=== PATIENT | female | born 1950 | race Caucasian/White ===

== ENCOUNTER 2017-08-05 12:44 | Outpatient (CLI) | payer MEDICARE | END 2017-08-05 12:45 | disposition home or self-care (01) | LOC: BICMAMMO 12:44 | PROVIDERS: ATTEND Internal Medicine Rheumatology | DX: Z13.820 Encounter for screening for osteoporosis (principal); M19.90 Unspecified osteoarthritis, unspecified site; M06.9 Rheumatoid arthritis, unspecified; M47.894 Other spondylosis, thoracic region | CPT/HCPCS: 71046; 72070; 77080 ==

== ENCOUNTER 2017-09-28 09:16 | Outpatient (CLI) | payer MEDICARE | END 2017-09-28 09:17 | disposition home or self-care (01) | LOC: BICMRI 09:16 | PROVIDERS: ATTEND Nurse Practitioner Family | DX: M47.24 Other spondylosis with radiculopathy, thoracic region (principal); M47.892 Other spondylosis, cervical region; M25.78 Osteophyte, vertebrae; G95.19 Other vascular myelopathies | CPT/HCPCS: 72141; 72146 ==

== ENCOUNTER 2018-01-28 17:19 | Emergency (ER) | payer MEDICARE ==
--- NOTE | 2018-01-28 18:17 | RAD ---
RIGHT WRIST THREE VIEW 01/28/18 HISTORY: Fall. Injury. COMPARISON: None. FINDINGS: Advanced degenerative disease radiocarpal joint. Advanced degenerative disease distal radial ulnar miguel a int. Positive ulnar variance. Severe degenerative disease thumb carpometacarpal joint. Evidence of ol d scapholunate ligament injury. IMPRESSION: Advanced degenerative changes. No acute displaced fracture is appreciated. POS: [facility]
[2018-01-28] MEDS ORDERED: HYDROcodone/Acetaminophen 5/325 mg Tablet ONE (19:06)
[2018-01-28] MEDS ORDERED: Adacel (T-DAP) 0.5 ML VIAL ONE (19:06)
== END 2018-01-28 19:18 | disposition home or self-care (01) ==
LOC: ERS 17:19
DX: S63.501A Unspecified sprain of right wrist, initial encounter (principal); F32.9 Major depressive disorder, single episode, unspecified; I10 Essential (primary) hypertension; Z23 Encounter for immunization; W01.0XXA Fall on same level from slipping, tripping and stumbling without subsequent striking against object, initial encounter
CPT/HCPCS: 90715

== ENCOUNTER 2018-08-01 13:51 | Outpatient (CLI) | payer MEDICARE ==
--- NOTE | 2018-08-01 15:35 | RAD ---
SEVEN VIEWS CERVICAL SPINE INCLUDING AP AND LATERAL AND FLEXION AND EXTENSION AND RIGHT AND LEFT OBLI QUE AND OPEN MOUTH ODONTOID VIEWS CERVICAL SPINE: HISTORY: Spondylosis cervical region. FINDINGS: Images demonstrate extensive anterior osteophytes with bridging osteophytes seen in the C4, C5, and c 6 vertebral levels. Large anterior bridging osteophytes are seen at the C5-6 level. Mild disk space height loss is seen at C5-6 and C6-7. There is 2 mm of anterolisthesis of C6 on C7. The neural foramen are patent. IMPRESSION: Mid and lower cervical changes of spondylosis. POS: [facility]
== END 2018-08-01 13:52 | disposition home or self-care (01) ==
LOC: BICRAD 13:51
PROVIDERS: ATTEND Internal Medicine Rheumatology
DX: M43.02 Spondylolysis, cervical region (principal); M47.812 Spondylosis without myelopathy or radiculopathy, cervical region
CPT/HCPCS: 72052

== ENCOUNTER 2018-10-23 12:38 | Outpatient (CLI) | payer MEDICARE ==
--- NOTE | 2018-10-23 13:41 | MRI ---
MRI Cervical Spine WO Con History: M 47.812 cervical spondylosis without myelopathy Comparison: Radiographs August 01, 2018 Findings: The cerebral tonsils terminate at the level of the foramen magnum. The cord signal is gustavo l. Prevertebral soft tissues are unremarkable. Paraspinal musculature is normal. No cervical adenopathy. Levels are as follows: C2/C3: Disc desiccation. Moderate uncinate process hypertrophy, greatest on the right. Moderate to se ruth bilateral facet arthrosis. Moderate to severe right and moderate left neural foraminal narrowing. C3/C4: Disc desiccation. Moderate degenerative disc space height loss. Moderate uncinate process hype rtrophy. Severe right and moderate left facet arthrosis. Moderate to severe right and left neural foraminal narrowing. C4/C5: Disc desiccation. Severe right and moderate left facet arthrosis. 2 mm anterolisthesis. Modera te uncinate process hypertrophy. Moderate to severe right and moderate left neural foraminal narrowing. C5/C6: Disc desiccation. High-grade right uncinate process hypertrophy. Severe right and moderate lef t facet arthropathy. Minimal effacement of the ventral CSF space although the canal still measures over 1 cm. Moderate right and mild left neural foraminal narrowing. C6/C7: 2 mm anterolisthesis. Severe facet arthropathy. There is posterior subluxation of scar and dis c material from anterolisthesis. Spinal canal not narrowed. Moderate right and mild left neural foraminal narrowing. C7/T1: Mild disc desiccation. No neural foraminal or spinal canal narrowing. There is a central posterior disc protrusion incompletely evaluated on this examination at the level of T2/T3 with effacement of the ventral CSF space and cord abutment. Impression: Advanced multilevel spondylosis as described.
== END 2018-10-23 12:39 | disposition home or self-care (01) ==
LOC: TBSIIMAG 12:38
PROVIDERS: ATTEND Neurological Surgery
DX: M47.812 Spondylosis without myelopathy or radiculopathy, cervical region (principal)
CPT/HCPCS: 72141

== ENCOUNTER 2019-03-08 09:25 | Outpatient (CLI) | payer MEDICARE ==
[~2019-03-08 09:25] MED LIST: Gadobenate Dimeglumine 529 MG/1 ML (20ML VIAL) ONE
--- NOTE | 2019-03-08 11:29 | MRI ---
MRI BRAIN WITH AND WITHOUT IV CONTRAST: HISTORY: TIA. Transient global amnesia COMPARISON: None CORRELATION: None FINDINGS: No restricted diffusion is seen. No evidence of infarct, hemorrhage, mass, midline shift or abnormal extra-axial fluid collections is noted. No abnormal postcontrast enhancement is seen. The ventricular size is appropriate and the basilar cisterns are patent. There are multiple foci of T2 prolongation in the periventricular white matter, consistent with chron ic small vessel ischemic disease. There is mucosal disease in the paranasal sinuses. IMPRESSION: No evidence of acute intracranial process or mass.
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
== END 2019-03-08 09:26 | disposition home or self-care (01) ==
LOC: SCSMRI 09:25
PROVIDERS: ATTEND Psychiatry & Neurology Neurology
DX: G45.4 Transient global amnesia (principal)
CPT/HCPCS: 70553; 82565; 93880; A9577

== ENCOUNTER 2019-07-10 09:27 | Outpatient (CLI) | payer MEDICARE ==
--- NOTE | 2019-07-10 10:46 | MMO ---
Bilateral MAMMO Bilat Diag [facility]BRIANNE. CLINICAL HISTORY: Patient is 69 years old and is seen for diagnostic exam. VIEWS: The views performed were: . FILMS COMPARED: The present examination has been compared to prior imaging studies performed at [facility] on 07/10/2019, and at [facility] on 11/20/2012. This study has been interpreted with the assistance of computer-aided detection. MAMMOGRAM FINDINGS: There are scattered fibroglandular densities. Finding 1: There are stable benign appearing calcifications seen in both breasts. Finding 2: Limited ultrasound of the right breast was performed in region of patient's focal area of pain. No cystic or solid lesion is seen. There are no suspicious masses, suspicious calcifications, or new areas of architectural distortion. IMPRESSION: FINDING 1: STABLE CALCIFICATIONS IN BOTH BREASTS ARE BENIGN. FINDING 2: FINDING IN THE RIGHT BREAST IS BENIGN. PATIENT'S FOCAL AREA OF PAIN SHOULD BE FURTHER MANAGED CLINICALLY. A ROUTINE FOLLOW-UP MAMMOGRAM IN 1 YEAR IS RECOMMENDED. THE RESULTS OF THIS EXAM WERE SENT TO THE PATIENT. ACR BI-RADS Category 2 - Benign finding MAMMOGRAPHY NOTE: 1. A negative mammogram report should not delay a biopsy if a dominant of clinically suspicious mass is present. 2. Approximately 10% to 15% of breast cancers are not detected by mammography. 3. Adenosis and dense breasts may obscure an underlying neoplasm. Reported by: RAINA DYKES MD Electonically Signed: [id number]
--- NOTE | 2019-07-10 11:40 | ULT ---
LIIMTED ULTRASOUND RIGHT BREAST: HISTORY: Focal area of pain right breast. FINDINGS: Limited sonographic evaluation of the right breast was performed at the 1:00 to 2:00 position at the site of patient's focal area of pain. No mass or cystic lesion is seen in this region. IMPRESSION: 1. BIRADS category 2, benign findings. Routine annual mammographic screening is recommended. 2. The patient's focal area of pain should be further managed clinically. POS: [facility]
== END 2019-07-10 09:28 | disposition home or self-care (01) ==
LOC: BICMAMMO 09:27
PROVIDERS: ATTEND Family Medicine
DX: N64.4 Mastodynia (principal); R92.1 Mammographic calcification found on diagnostic imaging of breast
CPT/HCPCS: 76642; 77066; G0279

== ENCOUNTER 2019-07-12 16:34 | Outpatient (CLI) | payer MEDICARE ==
--- NOTE | 2019-07-12 16:59 | RAD ---
Exam: XR Foot Lt 3 View STANDARD HISTORY: Right foot injury after fell on foot. COMPARISON: None FINDINGS: There is mild deformity involving the distal aspect of the proximal phalanx right small finger which may be developmental in origin or secondary to postsurgical change. No acute fracture, dislocation, or other acute osseous abnormality is identified. Lucent centered calcification overlie the distal right ankle may represent phleboliths. Subcutaneous soft tissue swelling is seen at the dorsal aspect of the right forefoot. IMPRESSION: Subcutaneous soft tissue swelling dorsal aspect right forefoot without evidence of an acute osseous a bnormality.
== END 2019-07-12 16:35 | disposition home or self-care (01) ==
LOC: SCSRAD 16:34
PROVIDERS: ATTEND Family Medicine
DX: S99.922A Unspecified injury of left foot, initial encounter (principal); M79.89 Other specified soft tissue disorders

== ENCOUNTER 2019-08-13 13:33 | Outpatient (CLI) | payer MEDICARE ==
--- NOTE | 2019-08-13 15:47 | MRI ---
MRI LEFT FOOT: DATE: 08/13/2019. PROVIDED CLINICAL HISTORY: Left foot pain and swelling. FINDINGS: There is greater than physiologic tenosynovial fluid about the tibialis anterior tendon. There is lo w-grade partial thickness tearing involving the tibialis anterior tendon at the level of the tibiotal ar joint. The anterior extensor, medial flexor, peroneal, and Achilles tendons appear otherwise inta ct. The medial and lateral ankle ligaments appear intact. There is a posterior subtalar joint effusion. There is a talonavicular joint effusion. There are subcortical cyst-like changes conspicuously affecting the 3rd TMT joint, and to a lesser ex tent the 1st, 2nd, and 4th TMT joints. Regional marrow signal appears otherwise unremarkable. There is conspicuous fatty infiltration of the intrinsic forefoot musculature. The dorsal extensor a nd plantar flexor tendons of the foot appear intact. There is no significant regional tenosynovial f luid. The MTP joint capsules appear grossly intact. There is no evidence for Graves neuroma. No ev idence for joint effusion involving the forefoot. Plantar calcaneal enthesophyte formation is noted with a normal appearance to the plantar aponeurosis . There is preservation of the normal fat signal intensity in the tarsal sinus. The courses of the regional major neurovascular structures appear unremarkable. IMPRESSION: 1. Conspicuous subcortical cyst-like change about portions of the Lisfranc joint suggesting degenera tive arthrosis. 2. Talonavicular and posterior subtalar joint effusions. 3. Fatty infiltration of the intrinsic forefoot musculature, which may reflect chronic denervation. 4. Tibialis anterior tenosynovitis and partial thickness tearing. POS: [facility]
== END 2019-08-13 13:34 | disposition home or self-care (01) ==
LOC: BICMRI 13:33
PROVIDERS: ATTEND Internal Medicine Rheumatology
DX: M79.672 Pain in left foot (principal); M67.972 Unspecified disorder of synovium and tendon, left ankle and foot; M25.475 Effusion, left foot; S96.812A Strain of other specified muscles and tendons at ankle and foot level, left foot, initial encounter; M65.872 Other synovitis and tenosynovitis, left ankle and foot

== ENCOUNTER 2019-11-14 13:47 | Emergency (ER) | payer MEDICARE, OTHER ==
[2019-11-15 14:17] LABS: SARS-CoV-2 MS2 Positive; SARS-CoV-2 N Gene Negative; SARS-CoV-2 S Gene Negative; SARS-CoV-2 orf1ab Negative
== END 2019-11-14 14:23 | disposition home or self-care (01) ==
LOC: ERS 13:47
DX: R05 Cough (principal); Z20.828 Contact with and (suspected) exposure to other viral communicable diseases; M06.9 Rheumatoid arthritis, unspecified; F32.9 Major depressive disorder, single episode, unspecified; I10 Essential (primary) hypertension; Z79.899 Other long term (current) drug therapy
CPT/HCPCS: 99283; U0003; 87635

== ENCOUNTER 2019-11-19 13:35 | Outpatient (CLI) | payer MEDICARE ==
--- NOTE | 2019-11-19 15:43 | BD ---
BONE DENSITOMETRY USING DEXA: Date: 11/19/2019 HISTORY: Postmenopausal screening for osteoporosis. FINDINGS: Lumbar Spine: BMD (g/cm2) L1 1.237 T-Score: 2.2 Z-Score: 4.1 L2 1.195 T-Score: 1.5 1 Z-Score: 3.6 L3 1.430 T-Score: 3.1 Z-Score: 5.3 L4 1.298 T-Score: 2.2 Z-Score: 4.4 L1-L4 1.299 T-Score: 2.3 Z-Score: 4.4 Right Forearm: /: 0.690 T-Score: -0.1 Z-Score: 2.0 Mid: 0.572 T-Score: -0,7 Z-Score: 1.4 UD 0.369 T-Score: -1.3 Z-Score: 0.2 Total 0.539 T-Score: -0.7 Z-Score: 1.2 Left Forearm: 05/18: 0.717 T-Score: 0.4 Z-Score: 2.4 Mid: 0.604 T-Score: -0,1 Z-Score: 2.0 UD 0.444 T-Score: 0.0 Z-Score: 1.5 Total 0.584 T-Score: 0.1 Z-Score: 2.0 IMPRESSION: Normal bone mineral density. POS: [facility]
== END 2019-11-19 13:36 | disposition home or self-care (01) ==
LOC: BICMAMMO 13:35
PROVIDERS: ATTEND Internal Medicine Rheumatology
DX: Z13.820 Encounter for screening for osteoporosis (principal); M05.79 Rheumatoid arthritis with rheumatoid factor of multiple sites without organ or systems involvement
CPT/HCPCS: 77080

== ENCOUNTER 2020-03-17 15:09 | Outpatient (CLI) | payer MEDICARE ==
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
--- NOTE | 2020-03-17 16:18 | RAD ---
LEFT FOOT TWO VIEWS: History: Pain Comparison: None FINDINGS: Anterior distal tibial soft tissue phleboliths. Small plantar calcaneal spur. Moderate sclerosis and degenerative change of the second and third and fourth tarsal metatarsal joint s. No acute displaced fractures appreciated. IMPRESSION: 1. No acute displaced fracture or malalignment. 2. Mild narrowing and degenerative change of the 2-4 tarsal metatarsal joints could sequelae of prior Lisfranc type injury. MR recommended if clinically warranted. 3. Erosion of the small toe proximal phalanx head, may be sequelae of prior injury at the interphalan geal joint. POS: [facility]
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
--- NOTE | 2020-03-17 16:53 | RAD ---
RIGHT FOOT 2 VIEWS: Date: 03/17/2020 HISTORY: Pain. COMPARISON: None. FINDINGS: There is sclerosis and narrowing of the second-fourth tarsometatarsal joints. Moderate degenerative d isease of the navicular cuneiform joints. No acute displaced fracture. There is narrowing of the small toe proximal interphalangeal joint. Smal l plantar calcaneal spur. IMPRESSION: Chronic findings. No acute displaced fracture. POS: [facility]
== END 2020-03-17 15:10 | disposition home or self-care (01) ==
LOC: BICRAD 15:09
PROVIDERS: ATTEND Nurse Practitioner Family
DX: M79.672 Pain in left foot (principal); M79.671 Pain in right foot; M54.2 Cervicalgia; M47.812 Spondylosis without myelopathy or radiculopathy, cervical region
CPT/HCPCS: 72050

== ENCOUNTER 2021-12-09 12:29 | Outpatient (CLI) | payer MEDICARE, OTHER | END 2021-12-09 12:30 | disposition home or self-care (01) | LOC: BICMAMMO 12:29 | PROVIDERS: ATTEND Registered Nurse | DX: Z12.31 Encounter for screening mammogram for malignant neoplasm of breast (principal); Z80.3 Family history of malignant neoplasm of breast | CPT/HCPCS: 77063; 77067 ==

== ENCOUNTER 2022-08-11 14:05 | Outpatient (CLI) | payer OTHER | END 2022-08-11 14:06 | disposition home or self-care (01) | LOC: BICMAMMO 14:05 | PROVIDERS: ATTEND Internal Medicine Rheumatology | DX: M81.0 Age-related osteoporosis without current pathological fracture (principal) | CPT/HCPCS: 77080 ==

== ENCOUNTER 2023-01-05 12:25 | Outpatient (CLI) | payer OTHER | END 2023-01-05 12:26 | disposition home or self-care (01) | LOC: BICMAMMO 12:25 | PROVIDERS: ATTEND Registered Nurse | DX: Z12.31 Encounter for screening mammogram for malignant neoplasm of breast (principal); Z80.3 Family history of malignant neoplasm of breast | CPT/HCPCS: 77063; 77067 ==

== ENCOUNTER 2023-04-22 14:16 | Outpatient (CLI) | payer OTHER | END 2023-04-22 14:17 | disposition home or self-care (01) | LOC: CT 14:16 | PROVIDERS: ATTEND Registered Nurse | DX: K44.9 Diaphragmatic hernia without obstruction or gangrene (principal) | CPT/HCPCS: 71250 ==

== ENCOUNTER 2023-06-07 16:00 | Outpatient (CLI) | payer OTHER | END 2023-06-07 16:01 | disposition home or self-care (01) | LOC: SLEEPLAB 16:00 | PROVIDERS: ATTEND Registered Nurse | DX: G47.33 Obstructive sleep apnea (adult) (pediatric) (principal); G47.00 Insomnia, unspecified; K21.9 Gastro-esophageal reflux disease without esophagitis; F32.A Depression, unspecified; E66.9 Obesity, unspecified; R06.83 Snoring; R35.1 Nocturia; R51.9 Headache, unspecified; I10 Essential (primary) hypertension; R53.83 Other fatigue; R09.89 Other specified symptoms and signs involving the circulatory and respiratory systems; Z68.37 Body mass index [BMI] 37.0-37.9, adult | CPT/HCPCS: 95800 ==

== ENCOUNTER 2023-07-04 16:00 | Outpatient (CLI) | payer OTHER | END 2023-07-04 16:01 | disposition home or self-care (01) | LOC: SLEEPLAB 16:00 | PROVIDERS: ATTEND Registered Nurse | DX: G47.33 Obstructive sleep apnea (adult) (pediatric) (principal); G47.61 Periodic limb movement disorder; G47.00 Insomnia, unspecified; I10 Essential (primary) hypertension; K21.9 Gastro-esophageal reflux disease without esophagitis; F32.A Depression, unspecified; R06.83 Snoring; R51.9 Headache, unspecified; R35.1 Nocturia; R53.83 Other fatigue; R09.89 Other specified symptoms and signs involving the circulatory and respiratory systems; E66.9 Obesity, unspecified; Z68.37 Body mass index [BMI] 37.0-37.9, adult | CPT/HCPCS: 95811 ==

== ENCOUNTER 2023-11-14 14:05 | Outpatient (CLI) | payer OTHER | END 2023-11-14 14:06 | disposition home or self-care (01) | LOC: BICMRI 14:05 | PROVIDERS: ATTEND Nurse Practitioner Family | DX: M48.02 Spinal stenosis, cervical region (principal); M50.11 Cervical disc disorder with radiculopathy, high cervical region | CPT/HCPCS: 72141 ==

== ENCOUNTER 2024-02-01 14:49 | Outpatient (CLI) | payer OTHER | END 2024-02-01 14:50 | disposition home or self-care (01) | LOC: BICMAMMO 14:49 | PROVIDERS: ATTEND Registered Nurse | DX: Z12.31 Encounter for screening mammogram for malignant neoplasm of breast (principal); Z80.3 Family history of malignant neoplasm of breast | CPT/HCPCS: 77063; 77067 ==

== ENCOUNTER 2025-03-14 13:04 | Outpatient (CLI) | payer OTHER | END 2025-03-14 13:05 | disposition home or self-care (01) | LOC: BICMAMMO 13:04 | PROVIDERS: ATTEND Registered Nurse | DX: Z12.31 Encounter for screening mammogram for malignant neoplasm of breast (principal); M81.0 Age-related osteoporosis without current pathological fracture; M85.832 Other specified disorders of bone density and structure, left forearm; Z80.3 Family history of malignant neoplasm of breast | CPT/HCPCS: 77063; 77067; 77080 ==